=== PATIENT | female | born 1975 | race Two or more races ===

== ENCOUNTER 2023-10-15 17:15 | Inpatient (IN) | payer MEDICAID, OTHER ==
[~2023-10-15] VITALS: Ht 149.9 cm; Wt 65.5 kg
[2023-10-15 17:42] LABS: Eosinophils # (auto) 0.4 10 ^3/uL (0-0.8); Lymphocytes # (auto) 3.1 10 ^3/uL (0.4-5.4); Lymphocytes % (auto) 28.6 % (10.0-50.0); Monocytes # (auto) 0.7 10 ^3/uL (0-1.3); Nucleated Red Blood Cells % 0.1 %
[2023-10-15 17:44] LABS: Basophils # (auto) 0.2 10 ^3/uL (0-0.2); Basophils % (auto) 2.1 % (0.0-2.0); Eosinophils % (auto) 3.4 % (0.0-7.0); Hematocrit 29.9 % (36.0-46.0); Hemoglobin 8.8 g/dL (12.2-16.2); Mean Corpuscular Hemoglobin 16.7 pg (28.0-32.0); Mean Corpuscular Hgb Conc. 29.6 g/dL (32.0-36.0); Mean Corpuscular Volume 56.5 fL (80.0-100.0); Monocytes % (auto) 6.6 % (0.0-12.0); Neutrophils # (auto) 6.4 10 ^3/uL (1.6-8.6); Neutrophils % (auto) 59.3 % (37.0-80.0); Red Blood Cells 5.29 10^6/uL (4.0-5.20); White Blood Cell 10.8 10^3/uL (4.4-10.8)
[2023-10-15 17:45] LABS: Red Cell Distribution Width 20.9 % (11.8-14.3)
[2023-10-15 17:49] LABS: INR 1.03 (0.9-1.15); Partial Thromboplastin Time 29.7 SEC (24.5-34.5); Prothrombin Time 10.8 sec (9.3-11.8)
[2023-10-15 17:52] LABS: Alanine Aminotransferase 27 U/L (7-40); Albumin 4.6 g/dL (3.2-4.8); Alkaline Phosphatase 182 U/L (46-116); Anion Gap 7 (5-15); Aspartate Aminotransferase 35 U/L (13-40); BUN/Creatinine Ratio 11.6 (10.0-20.0); Bilirubin, Total 0.8 mg/dL (0.2-1.0); Blood Urea Nitrogen 8 mg/dL (9-23); Calcium 9.9 mg/dL (8.7-10.4); Carbon Dioxide 23 mmol/L (20-30); Chloride 107 mmol/L (98-107); Glucose 136 mg/dL (74-106); Magnesium 2.2 mg/dL (1.6-2.6); Potassium 3.7 mmol/L (3.5-5.1); Sodium 137 mmol/L (136-145)
[2023-10-15 18:08] LABS: Platelet Estimate Increased
[2023-10-15 18:09] LABS: Anisocytosis Slight; Hypochromia Moderate; Ovalocytes FEW; Stomatocytes Few; Target Cell FEW
[2023-10-15 18:56] LABS: Urine Bacteria MOD /hpf (None Seen); Urine Blood 3+ /uL (Negative); Urine Clarity HAZY (Clear); Urine Color Colorless (Yellow); Urine Mucus FEW (None Seen); Urine Protein, UAD TRACE (Negative); Urine Specific Gravity 1.016 (1.001-1.035); Urine WBC 3 /hpf (0 - 5)
[2023-10-15] MEDS: PANTOPRAZOLE 40 MG/10 ML VIAL INJ IV ONE (20:10)
[2023-10-15] MEDS: ONDANSETRON HCL 4 MG/2 ML VIAL IV ONE (20:11)
[2023-10-15] MEDS: MORPHINE SULFATE 4 MG/ML SYR/VIAL IV ONE (20:11)
[2023-10-15] MEDS ORDERED: DOCUSATE SOD 100 MG CAP PO PRN (21:15)
[2023-10-15] MEDS ORDERED: ONDANSETRON HCL 4 MG/2 ML VIAL IV PRN (21:15)
[2023-10-15] MEDS: SODIUM CHLOR 0.9% PF (SALINE LOCK) 10ML VIAL/SYR IV SCH (22:03)
[2023-10-15] MEDS ORDERED: NITROGLYCERIN 0.4 MG SL TAB SL PRN (22:45)
[2023-10-15] MEDS ORDERED: MORPHINE SULFATE INJ 2 MG/ml SYRG IV PRN (22:45)
[2023-10-16] VITALS: PULSE 72; RESP 14; O2SAT 99
[2023-10-16 04:47] LABS: Lymphocytes # (auto) 2.7 10 ^3/uL (0.4-5.4); White Blood Cell 9.3 10^3/uL (4.4-10.8)
[2023-10-16 04:48] LABS: Basophils # (auto) 0.1 10 ^3/uL (0-0.2); Basophils % (auto) 1.5 % (0.0-2.0); Eosinophils # (auto) 0.3 10 ^3/uL (0-0.8); Eosinophils % (auto) 3.3 % (0.0-7.0); Hemoglobin 8.4 g/dL (12.2-16.2); Lymphocytes % (auto) 28.8 % (10.0-50.0); Mean Corpuscular Hemoglobin 16.5 pg (28.0-32.0); Mean Corpuscular Volume 56.8 fL (80.0-100.0); Monocytes # (auto) 0.7 10 ^3/uL (0-1.3); Monocytes % (auto) 7.7 % (0.0-12.0); Neutrophils # (auto) 5.5 10 ^3/uL (1.6-8.6); Neutrophils % (auto) 58.7 % (37.0-80.0); Red Blood Cells 5.09 10^6/uL (4.0-5.20)
[2023-10-16 04:54] LABS: Red Cell Distribution Width 20.5 % (11.8-14.3)
[2023-10-16 05:04] LABS: Alanine Aminotransferase 22 U/L (7-40); Alkaline Phosphatase 160 U/L (46-116); Aspartate Aminotransferase 31 U/L (13-40); Calcium 9.4 mg/dL (8.7-10.4); Carbon Dioxide 23 mmol/L (20-30); Chloride 108 mmol/L (98-107)
[2023-10-16 05:05] LABS: Albumin 4.3 g/dL (3.2-4.8); Anion Gap 7 (5-15); BUN/Creatinine Ratio 13.3 (10.0-20.0); Blood Urea Nitrogen 8 mg/dL (9-23); Glucose 106 mg/dL (74-106); Potassium 3.5 mmol/L (3.5-5.1); Sodium 138 mmol/L (136-145); Total Protein 7.6 g/dL (5.7-8.2)
[2023-10-16 07:30] VITALS: PULSE 79; RESP 15; O2SAT 100
[2023-10-16] MEDS: SODIUM CHLORIDE 0.9% 1,000 ML IV SCH (09:51)
[2023-10-16] MEDS: PANTOPRAZOLE 40 MG/10 ML VIAL INJ IV SCH (09:52)
[2023-10-16] MEDS: cefTRIAXone 1GM/50ML D5W 50 ML IV ONE (09:52)
[2023-10-16] MEDS: ASPirin 81 mg TAB PO SCH (09:52)
[2023-10-16 11:00] LABS: Erythrocyte Sedimentation Rate 15 mm/hr (0-20)
[2023-10-16] MEDS: IOHEXOL 350 MG/ML 100ML IJ ONE (14:11)
[2023-10-16 19:30] VITALS: PULSE 74; RESP 12; O2SAT 100
[2023-10-16 22:10] VITALS: PULSE 74; RESP 18; O2SAT 99
[2023-10-16 22:17] VITALS: BP 156/82; PULSE 74; RESP 18; TEMP 98.7; O2SAT 99
[2023-10-16] MEDS ORDERED: IBUP-1453 PO (22:52)
[2023-10-16 23:56] VITALS: BP 140/71; PULSE 73
[2023-10-17] VITALS (10 sets, daily range): BP systolic 124–151; BP diastolic 50–69; PULSE 68–98; RESP 16–22; TEMP 97.5–98.7; O2SAT 98–100
[2023-10-17 05:15] LABS: Basophils # (auto) 0.1 10 ^3/uL (0-0.2); Basophils % (auto) 1.4 % (0.0-2.0); Eosinophils # (auto) 0.4 10 ^3/uL (0-0.8); Monocytes # (auto) 0.6 10 ^3/uL (0-1.3); Monocytes % (auto) 7.4 % (0.0-12.0)
[2023-10-17 05:18] LABS: Eosinophils % (auto) 5.1 % (0.0-7.0); Hematocrit 25.5 % (36.0-46.0); Hemoglobin 7.6 g/dL (12.2-16.2); Lymphocytes % (auto) 23.4 % (10.0-50.0); Mean Corpuscular Hgb Conc. 29.6 g/dL (32.0-36.0); Mean Corpuscular Volume 57.5 fL (80.0-100.0); Neutrophils # (auto) 5.3 10 ^3/uL (1.6-8.6); Neutrophils % (auto) 62.7 % (37.0-80.0); Red Blood Cells 4.45 10^6/uL (4.0-5.20); White Blood Cell 8.4 10^3/uL (4.4-10.8)
[2023-10-17 05:28] LABS: Red Cell Distribution Width 20.7 % (11.8-14.3)
[2023-10-17 05:33] LABS: Alanine Aminotransferase 20 U/L (7-40); Albumin 3.9 g/dL (3.2-4.8); Alkaline Phosphatase 138 U/L (46-116); Amylase 42 U/L (30-118); Anion Gap 3 (5-15); Aspartate Aminotransferase 21 U/L (13-40); BUN/Creatinine Ratio 16.9 (10.0-20.0); Bilirubin, Total 0.8 mg/dL (0.2-1.0); Blood Urea Nitrogen 11 mg/dL (9-23); Calcium 9.1 mg/dL (8.7-10.4); Carbon Dioxide 27 mmol/L (20-30); Chloride 109 mmol/L (98-107); Glucose 115 mg/dL (74-106); Lipase 44 U/L (12-53); Potassium 3.5 mmol/L (3.5-5.1); Sodium 139 mmol/L (136-145); Total Protein 6.9 g/dL (5.7-8.2)
[2023-10-17 08:55] LABS: Triglycerides 110 mg/dL (< 150)
[2023-10-17 08:55] LABS: Amphetamine Screen, Urine Neg (NEGATIVE); Barbiturate Scree,Urine Neg (NEGATIVE)
[2023-10-17 08:56] LABS: LDL Cholesterol 80 mg/dL (< 100)
[2023-10-17 08:56] LABS: Benzodiazephine Screen, Urine Neg (NEGATIVE); Cannabinoid Screen, Urine Neg (NEGATIVE); Cocaine Screen, Urine Neg (NEGATIVE); Opiate Scree,Urine Neg (NEGATIVE); Phencyclidine Screen, Urine Neg (NEGATIVE)
[2023-10-17 08:57] LABS: HDL Cholesterol 37 mg/dL (40-59)
[2023-10-17 08:58] LABS: Cholesterol 126 mg/dL (< 200)
[2023-10-17] MEDS: cefTRIAXone 1GM/50ML D5W 50 ML IV SCH (09:20)
[2023-10-17 11:45] LABS: Hematocrit 28.4 % (36.0-46.0); Hemoglobin 8.2 g/dL (12.2-16.2)
[2023-10-17] MEDS: FERROUS SULFATE 325mg EC TAB PO ONE (13:11)
[2023-10-17 16:12] LABS: Hemoglobin 7.5 g/dL (12.2-16.2)
[2023-10-17] MEDS: hydrALAZINE HCL 20 MG/ML VL IV PRN (17:04)
[2023-10-17] MEDS: HYDROcodone-ACET 5/325MG TAB PO PRN (17:13)
[2023-10-17 21:58] LABS: Hemoglobin 8.2 g/dL (12.2-16.2)
[2023-10-17 22:00] LABS: Hematocrit 27.9 % (36.0-46.0)
[2023-10-17] MEDS: ACETAMINOPHEN 325 MG TAB PO PRN (23:20)
[2023-10-18] VITALS (8 sets, daily range): BP systolic 133–146; BP diastolic 53–72; PULSE 60–83; RESP 14–22; TEMP 97.5–98.2; O2SAT 93–100
[2023-10-18 06:47] LABS: Eosinophils # (auto) 0.4 10 ^3/uL (0-0.8); Hemoglobin 7.8 g/dL (12.2-16.2); Lymphocytes # (auto) 2.5 10 ^3/uL (0.4-5.4); Nucleated Red Blood Cells % 0.1 %; White Blood Cell 8.6 10^3/uL (4.4-10.8)
[2023-10-18 06:50] LABS: Basophils # (auto) 0.1 10 ^3/uL (0-0.2); Basophils % (auto) 1.2 % (0.0-2.0); Eosinophils % (auto) 4.4 % (0.0-7.0); Lymphocytes % (auto) 28.5 % (10.0-50.0); Mean Corpuscular Hemoglobin 16.7 pg (28.0-32.0); Mean Corpuscular Volume 57.6 fL (80.0-100.0); Monocytes # (auto) 0.7 10 ^3/uL (0-1.3); Monocytes % (auto) 8.2 % (0.0-12.0); Neutrophils % (auto) 57.7 % (37.0-80.0); Red Blood Cells 4.68 10^6/uL (4.0-5.20); Red Cell Distribution Width 20.4 % (11.8-14.3)
[2023-10-18] MEDS: FERROUS SULFATE 325mg EC TAB PO ONE (10:30)
[2023-10-18] MEDS: TEMAZEPAM 15 MG CAP PO PRN (22:21)
[2023-10-19] VITALS (7 sets, daily range): BP systolic 122–139; BP diastolic 45–76; PULSE 85–110; RESP 14–19; TEMP 97.8–98.8; O2SAT 92–100
[2023-10-19] MEDS: SUCCINYLCHOLINE CHLORIDE 20 MG/ML 10ML VIAL IV ONE (06:53)
[2023-10-19] MEDS: ROCURONIUM 10MG/ML 10ML VIAL IV ONE (06:53)
[2023-10-19] MEDS ORDERED: NEOSTIGMINE 1 MG/ML INJ (10mg/10ML VIAL) ONE (07:00)
[2023-10-19] MEDS ORDERED: GLYCOPYRROLATE 0.2 MG/ML 1ML VIAL ONE (07:00)
[2023-10-19] MEDS ORDERED: ONDANSETRON HCL 4 MG/2 ML VIAL ONE (07:00)
[2023-10-19] MEDS ORDERED: SODIUM CHLORIDE LOCK 10 ML ONE (07:00)
[2023-10-19] MEDS ORDERED: KETAMINE 50mg/ML 1ml syringe ONE (07:00)
[2023-10-19] MEDS ORDERED: MIDAZOLAM HCL 2MG/2ML 2ml VIAL (1mg/ml) ONE (07:00)
[2023-10-19] MEDS ORDERED: fentaNYL CITRATE 100 MCG/2 ML VL ONE (07:00)
[2023-10-19] MEDS ORDERED: LIDOCAINE 1% INJ PF 5ML AMP ONE (07:00)
[2023-10-19] MEDS ORDERED: LIDOCAINE HCL 2% TOP JELLY 5ML TOP ONE (07:00)
[2023-10-19] MEDS ORDERED: MEPERIDINE HCL (50 MG/ML) 1 ML VIAL ONE (07:00)
[2023-10-19] MEDS ORDERED: DexAMETHasone SOD PHOS 10MG/1ML VIAL INJ ONE (07:00)
[2023-10-19] MEDS: LIDOCAINE 2% JELLY 11ml (GLYDO) ONE (07:02)
[2023-10-19] MEDS ORDERED: HYDROmorphone HCL 2 MG/ML VL/or syr IV PRN ×2 (07:30)
[2023-10-19] MEDS ORDERED: MORPHINE SULFATE INJ 2 MG/ml SYRG IV PRN (07:30)
[2023-10-19] MEDS: METOCLOPRAMIDE HCL 5MG/ml INJ 2ml VIAL IV ONE (07:30)
[2023-10-19] MEDS: ceFAZolin 2 GM/D5W50ml 50 ML IV ONE (07:32)
[2023-10-19] MEDS: POVIDONE IODINE 10 % TOPICAL OINT 30GM TOP ONE (07:38)
[2023-10-19] MEDS: BUPIVACAINE 0.25% INJ 50ML VIAL ONE (07:56)
[2023-10-19] MEDS: LIDOCAINE 1%-Mpf/Epinephrine 1:200,000 30ml VIAL ONE (07:56)
[2023-10-19] MEDS: metroNIDAZOLE 500MG/100ML 100 ML IV SCH (10:00)
[2023-10-19] MEDS: MORPHINE SULFATE INJ 2 MG/ml SYRG IV PRN (12:46)
[2023-10-20] VITALS (11 sets, daily range): BP systolic 114–129; BP diastolic 51–72; PULSE 66–91; RESP 16–20; TEMP 97.7–98.7; O2SAT 92–100
[2023-10-20 08:49] LABS: Basophils # (auto) 0 10 ^3/uL (0-0.2); Basophils % (auto) 0.1 % (0.0-2.0); Eosinophils # (auto) 0 10 ^3/uL (0-0.8); Eosinophils % (auto) 0.1 % (0.0-7.0); Mean Corpuscular Hgb Conc. 28.6 g/dL (32.0-36.0); Monocytes # (auto) 1.1 10 ^3/uL (0-1.3)
[2023-10-20 08:51] LABS: Hematocrit 23.3 % (36.0-46.0); Lymphocytes # (auto) 1.8 10 ^3/uL (0.4-5.4); Lymphocytes % (auto) 11.7 % (10.0-50.0); Mean Corpuscular Hemoglobin 16.8 pg (28.0-32.0); Mean Corpuscular Volume 58.7 fL (80.0-100.0); Monocytes % (auto) 7.2 % (0.0-12.0); Neutrophils # (auto) 12.3 10 ^3/uL (1.6-8.6); Neutrophils % (auto) 80.9 % (37.0-80.0); Red Blood Cells 3.97 10^6/uL (4.0-5.20); White Blood Cell 15.2 10^3/uL (4.4-10.8)
[2023-10-20 08:57] LABS: Red Cell Distribution Width 20.3 % (11.8-14.3)
[2023-10-20 09:00] LABS: Hemoglobin 6.7 g/dL (12.2-16.2)
[2023-10-20 09:39] LABS: Platelet Estimate Increased
[2023-10-20 09:41] LABS: Anisocytosis Slight; Hypochromia Marked
[2023-10-20 10:26] LABS: Basophils # (auto) 0 10 ^3/uL (0-0.2); Eosinophils # (auto) 0 10 ^3/uL (0-0.8); Lymphocytes # (auto) 1.7 10 ^3/uL (0.4-5.4); Mean Corpuscular Volume 60.3 fL (80.0-100.0); Neutrophils # (auto) 11.8 10 ^3/uL (1.6-8.6); White Blood Cell 14.6 10^3/uL (4.4-10.8)
[2023-10-20 10:28] LABS: Basophils % (auto) 0.2 % (0.0-2.0); Hematocrit 23.7 % (36.0-46.0); Lymphocytes % (auto) 11.8 % (10.0-50.0); Mean Corpuscular Hemoglobin 16.8 pg (28.0-32.0); Mean Corpuscular Hgb Conc. 27.8 g/dL (32.0-36.0); Monocytes % (auto) 6.8 % (0.0-12.0); Neutrophils % (auto) 81.2 % (37.0-80.0); Nucleated Red Blood Cells % 0.1 %; Red Blood Cells 3.93 10^6/uL (4.0-5.20)
[2023-10-20 10:34] LABS: Red Cell Distribution Width 20.4 % (11.8-14.3)
[2023-10-20 10:48] LABS: Hemoglobin 6.6 g/dL (12.2-16.2)
[2023-10-20 17:28] LABS: Hemoglobin 8.7 g/dL (12.2-16.2)
[2023-10-20 17:31] LABS: Hematocrit 28.6 % (36.0-46.0)
[2023-10-21] VITALS (7 sets, daily range): BP systolic 122–145; BP diastolic 55–78; PULSE 68–84; RESP 16–20; TEMP 97.6–99; O2SAT 92–99
[2023-10-22 05:00] VITALS: BP 142/65; PULSE 68; RESP 18; TEMP 98.4; O2SAT 97
[2023-10-22 05:48] LABS: Basophils # (auto) 0.1 10 ^3/uL (0-0.2); Basophils % (auto) 1.2 % (0.0-2.0); Mean Corpuscular Volume 63.9 fL (80.0-100.0); Neutrophils # (auto) 5.1 10 ^3/uL (1.6-8.6); White Blood Cell 8.5 10^3/uL (4.4-10.8)
[2023-10-22 05:51] LABS: Eosinophils # (auto) 0.5 10 ^3/uL (0-0.8); Eosinophils % (auto) 5.4 % (0.0-7.0); Hematocrit 30.4 % (36.0-46.0); Hemoglobin 9.2 g/dL (12.2-16.2); Lymphocytes # (auto) 2.1 10 ^3/uL (0.4-5.4); Lymphocytes % (auto) 25.3 % (10.0-50.0); Mean Corpuscular Hemoglobin 19.4 pg (28.0-32.0); Mean Corpuscular Hgb Conc. 30.3 g/dL (32.0-36.0); Monocytes # (auto) 0.7 10 ^3/uL (0-1.3); Monocytes % (auto) 7.8 % (0.0-12.0); Neutrophils % (auto) 60.3 % (37.0-80.0); Red Blood Cells 4.75 10^6/uL (4.0-5.20); Red Cell Distribution Width 29.2 % (11.8-14.3)
[2023-10-22 08:00] VITALS: BP 137/69; PULSE 66; PULSE 82; RESP 16; TEMP 98.2; O2SAT 93
[2023-10-22] MEDS ORDERED: HYDR-4902 PO (10:44)
[2023-10-22] MEDS ORDERED: METR-344 PO (10:44)
[2023-10-22] MEDS ORDERED: ZOFR4T PO (11:29)
[2023-10-22 11:31] VITALS: BP 151/69; TEMP 36.8
== END 2023-10-22 12:21 | disposition home or self-care (01) | DRG 263 ==
LOC: ER 17:15 → TELE-WESTW 22:37 → TELE 22:37 → TELE-WESTW 10-16 22:05
PROVIDERS: ADMIT Nurse Practitioner Family; ATTEND Internal Medicine
PROC: 0FT44ZZ Resection of Gallbladder, Percutaneous Endoscopic Approach (ICD-10-PCS; principal; 2023-10-19 07:32)
PROC: 30233N1 Transfusion of Nonautologous Red Blood Cells into Peripheral Vein, Percutaneous Approach (ICD-10-PCS; 2023-10-20)
DX: K80.64 Calculus of gallbladder and bile duct with chronic cholecystitis without obstruction (principal); D64.9 Anemia, unspecified; D75.839 Thrombocytosis, unspecified; R73.9 Hyperglycemia, unspecified; I10 Essential (primary) hypertension; N92.0 Excessive and frequent menstruation with regular cycle; E66.9 Obesity, unspecified; Z83.3 Family history of diabetes mellitus; Z82.49 Family history of ischemic heart disease and other diseases of the circulatory system; Z80.0 Family history of malignant neoplasm of digestive organs; Z68.32 Body mass index [BMI] 32.0-32.9, adult
CPT/HCPCS: 36415; 71045; 71275; 76705; 78226; 80053; 80061; 80307; 81001; 82150; 82247; 82270; 82550; 83036; 83690; 83735; 83880; 84443; 84484; 84702; 85014; 85018; 85025; 85379; 85610; 85652; 85730; 86141; 86850; 86900; 86901; 86920; 87070; 87075; 87076; 87086; 87205; 93005; 93306; C9113; G0378; J0330; J1100; J2250; J2405; J3490